=== PATIENT | female | born 1955 | race Caucasian/White ===

== ENCOUNTER 2023-04-01 08:09 | Day surgery (SDC) | payer OTHER, BC ==
[2023-03-27 16:33] VITALS: BMI 26.0
[2023-04-01 11:11] VITALS: RESP 16; TEMP 97.7
[2023-04-01 11:14] VITALS: BP 118/57; PULSE 61
== END 2023-04-01 11:15 | disposition home or self-care (01) ==
LOC: FASU-ENDO 08:09
PROVIDERS: ATTEND Internal Medicine Gastroenterology
PROC: 0DBL8ZX Excision of Transverse Colon, Via Natural or Artificial Opening Endoscopic, Diagnostic (ICD-10-PCS; 2023-04-01)
PROC: 0DBN8ZX Excision of Sigmoid Colon, Via Natural or Artificial Opening Endoscopic, Diagnostic (ICD-10-PCS; 2023-04-01)
PROC: 0DBH8ZX Excision of Cecum, Via Natural or Artificial Opening Endoscopic, Diagnostic (ICD-10-PCS; principal; 2023-04-01 10:08)
DX: Z12.11 Encounter for screening for malignant neoplasm of colon (principal); D12.3 Benign neoplasm of transverse colon; K63.5 Polyp of colon; K62.1 Rectal polyp; K64.1 Second degree hemorrhoids
CPT/HCPCS: 88305-TC

== ENCOUNTER 2023-05-23 09:09 | Day surgery (SDC) | payer OTHER, BC ==
[2023-05-19 16:29] VITALS: BMI 26.0
[2023-05-23 11:30] VITALS: PULSE 61; TEMP 97.7
[2023-05-23 12:13] VITALS: BP 110/65; RESP 18
== END 2023-05-23 12:00 | disposition home or self-care (01) ==
LOC: FASU-ENDO 09:09
PROVIDERS: ATTEND Internal Medicine Gastroenterology
PROC: 0DBL8ZX Excision of Transverse Colon, Via Natural or Artificial Opening Endoscopic, Diagnostic (ICD-10-PCS; 2023-05-23)
PROC: 0DBN8ZX Excision of Sigmoid Colon, Via Natural or Artificial Opening Endoscopic, Diagnostic (ICD-10-PCS; 2023-05-23)
PROC: 0DBP8ZX Excision of Rectum, Via Natural or Artificial Opening Endoscopic, Diagnostic (ICD-10-PCS; principal; 2023-05-23 10:57)
DX: Z12.11 Encounter for screening for malignant neoplasm of colon (principal); D12.3 Benign neoplasm of transverse colon; K63.5 Polyp of colon; K62.1 Rectal polyp; K64.1 Second degree hemorrhoids; Z86.010 Personal history of colon polyps
CPT/HCPCS: 88305-TC